=== PATIENT | female | born 1950 | race Caucasian/White ===

== ENCOUNTER 2016-07-11 07:35 | Outpatient (CLI) | payer MEDICARE, MEDICAID ==
[~2016-07-11 07:35] MED LIST: DIPHENHYDRAMINE HCL 50 MG/ML VIAL IV PRN; MAGNESIUM SULFATE 4 GM/D5W 100 ML IV PRN; ONDANSETRON HCL INJ/PF 4 MG/2 ML SDV IV PRN
[2016-07-11 08:21] LABS: ALANINE AMINOTRANSFERASE 24 U/L (9-52); ALBUMIN 3.2 g/dL (3.5-5.0); ALKALINE PHOSPHATASE 86 U/L (38-126); ANION GAP 8 (5-19); ASPARTATE AMINO TRANSFERASE 19 U/L (14-36); BILIRUBIN,DIRECT 0.1 mg/dL (0.0-0.4); BILIRUBIN,TOTAL 0.3 mg/dL (0.2-1.3); BLOOD UREA NITROGEN 22 mg/dL (7-20); CARBON DIOXIDE 19 mmol/L (22-30); CHLORIDE 114 mmol/L (98-107); CREATININE RESULT 1.77 mg/dL (0.52-1.25); GLUCOSE 79 mg/dL (75-110); POTASSIUM 5.1 mmol/L (3.6-5.0); SODIUM 141.4 mmol/L (137-145); TOTAL PROTEIN 5.4 g/dL (6.3-8.2)
[2016-07-11 08:32] VITALS: BP 115/54
[2016-07-11 08:34] LABS: MAGNESIUM 0.7 mg/dL (1.6-2.3)
== END 2016-07-11 13:48 | disposition home or self-care (01) ==
LOC: II 07:35 → 5TH 07:48 → II 13:48
PROVIDERS: ATTEND Family Medicine
PROC: 3E043GC Introduction of Other Therapeutic Substance into Central Vein, Percutaneous Approach (ICD-10-PCS; principal; 2016-07-11)
PROC: 3E043GC Introduction of Other Therapeutic Substance into Central Vein, Percutaneous Approach (ICD-10-PCS; 2016-07-11)
PROC: 3E043GC Introduction of Other Therapeutic Substance into Central Vein, Percutaneous Approach (ICD-10-PCS; 2016-07-11)
PROC: 3E043GC Introduction of Other Therapeutic Substance into Central Vein, Percutaneous Approach (ICD-10-PCS; 2016-07-11)
DX: K50.90 Crohn's disease, unspecified, without complications (principal); K90.9 Intestinal malabsorption, unspecified
CPT/HCPCS: 96365; 96366; 96375; 36415; 83735; 80053; J3475; J1200; J2405; 96374

== ENCOUNTER 2016-07-14 08:17 | Outpatient (CLI) | payer MEDICARE, MEDICAID ==
[2016-07-14] MEDS ORDERED: ONDANSETRON HCL INJ/PF 4 MG/2 ML SDV IV PRN (09:50)
[2016-07-14] MEDS ORDERED: DIPHENHYDRAMINE HCL 50 MG/ML VIAL IV PRN (09:51)
[2016-07-14] MEDS ORDERED: ACETAMINOPHEN 325 MG TABLET PO PRN (09:57)
[2016-07-14] MEDS ORDERED: MAGNESIUM SULFATE 4 GM/D5W 100 ML IV ONE (10:30)
[2016-07-14 11:04] LABS: ALANINE AMINOTRANSFERASE 23 U/L (9-52); ALBUMIN 2.5 g/dL (3.5-5.0); ALKALINE PHOSPHATASE 77 U/L (38-126); ANION GAP 6 (5-19); ASPARTATE AMINO TRANSFERASE 14 U/L (14-36); BILIRUBIN,DIRECT 0.1 mg/dL (0.0-0.4); BILIRUBIN,TOTAL 0.1 mg/dL (0.2-1.3); BLOOD UREA NITROGEN 20 mg/dL (7-20); CALCIUM 7.7 mg/dL (8.4-10.2); CARBON DIOXIDE 18 mmol/L (22-30); CHLORIDE 115 mmol/L (98-107); GLUCOSE 93 mg/dL (75-110); POTASSIUM 4.9 mmol/L (3.6-5.0); SODIUM 139.4 mmol/L (137-145); TOTAL PROTEIN 4.5 g/dL (6.3-8.2)
[2016-07-14 11:15] LABS: MAGNESIUM 0.8 mg/dL (1.6-2.3)
[2016-07-14 12:28] VITALS: BP 97/48
== END 2016-07-14 16:35 | disposition home or self-care (01) ==
LOC: II 08:17 → 4N 08:17 → II 16:35
PROVIDERS: ATTEND Family Medicine
PROC: 3E043GC Introduction of Other Therapeutic Substance into Central Vein, Percutaneous Approach (ICD-10-PCS; principal; 2016-07-14)
DX: K50.90 Crohn's disease, unspecified, without complications (principal); K90.9 Intestinal malabsorption, unspecified; Z79.899 Other long term (current) drug therapy; Z98.890 Other specified postprocedural states
CPT/HCPCS: 96365; 96366; 96375; 36415; 83735; 80053; J3475; J2405; J1642

== ENCOUNTER 2016-07-18 07:18 | Outpatient (CLI) | payer MEDICARE, MEDICAID ==
[2016-07-18] MEDS ORDERED: MAGNESIUM SULFATE 4 GM/D5W 100 ML IV PRN (07:26)
[2016-07-18] MEDS ORDERED: DIPHENHYDRAMINE HCL 50 MG/ML VIAL IV PRN (07:31)
[2016-07-18] MEDS ORDERED: ONDANSETRON HCL INJ/PF 4 MG/2 ML SDV IV PRN (07:31)
[2016-07-18 08:28] VITALS: BP 111/55
== END 2016-07-18 09:10 | disposition home or self-care (01) ==
LOC: II 07:18 → 5TH 07:47 → II 09:10
PROVIDERS: ATTEND Family Medicine
PROC: 3E043GC Introduction of Other Therapeutic Substance into Central Vein, Percutaneous Approach (ICD-10-PCS; principal; 2016-07-18)
DX: E83.42 Hypomagnesemia (principal); G40.909 Epilepsy, unspecified, not intractable, without status epilepticus
CPT/HCPCS: 96367; 96375; J3475; 96365; 96366

== ENCOUNTER 2016-07-18 08:54 | Emergency (ER) | payer MEDICARE, MEDICAID ==
--- NOTE | 2016-07-18 09:07 | ER Document Report ---
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 Patient only has these seizures when her magnesium levels low, patient receives magnesium transfusions 3 times a week. Receiving her transfusion when she seized TRAVEL OUTSIDE OF THE [place] IN LAST 30 DAYS: No - HPI Onset: Just prior to arrival Onset/Duration: Sudden Quality of pain: No pain Severity: Mild Pain Level: Denies Associated symptoms: Weakness, Other Exacerbated by: Denies Relieved by: Denies Similar symptoms previously: Yes Recently seen / treated by doctor: Yes - Related Data Allergies/Adverse Reactions: acetaminophen [From Percocet] Allergy (Verified 07/18/16 09:25) butorphanol [From Stadol] Allergy (Verified 07/18/16 09:25) cephalexin [From Keflex] Allergy (Verified 07/18/16 09:25) codeine Allergy (Verified 07/18/16 09:25) Difficulty breathing cyclobenzaprine [From Flexeril] Allergy (Verified 07/18/16 09:25) ketoprofen Allergy (Verified 07/18/16 09:25) ketorolac [From Toradol] Allergy (Verified 07/18/16 09:25) meloxicam [From Mobic] Allergy (Verified 07/18/16 09:25) oxycodone [From Percocet] Allergy (Verified 07/18/16 09:25) pentazocine [From Talwin] Allergy (Verified 07/18/16 09:25) promethazine [From Phenergan] Allergy (Verified 07/18/16 09:25) sulfasalazine [From Azulfidine] Allergy (Verified 07/18/16 09:25) adhesive Adverse Reaction (Verified 07/18/16 09:25) Past Medical History - Social History Smoking Status: Never Smoker Cigarette use (# per day): No Chew tobacco use (# tins/day): No Smoking Education Provided: No Family History: Reviewed & Not Pertinent Review of Systems - Review of Systems Notes: REVIEW OF SYSTEMS: CONSTITUTIONAL : Denies fever, chills, or sweats. Denies recent illness. EENT: Denies eye, ear, throat, or mouth pain or symptoms. Denies nasal or sinus congestion or discharge. Denies throat, tongue, or mouth swelling or difficulty swallowing. CARDIOVASCULAR: Denies chest pain. Denies palpitations or racing or irregular heart beat. Denies ankle edema. RESPIRATORY: Denies cough, cold, or chest congestion. Denies shortness of breath, difficulty breathing, or wheezing. GASTROINTESTINAL: Denies abdominal pain or distention. Denies nausea, vomiting , or diarrhea. Denies blood in vomitus, stools, or per rectum. Denies black, tarry stools. Denies constipation. GENITOURINARY: Denies difficulty urinating, painful urination, burning, frequency, blood in urine, or discharge. FEMALE GENITOURINARY: Denies vaginal bleeding, heavy or abnormal periods, irregular periods. Denies vaginal discharge or odor. MUSCULOSKELETAL: Denies back or neck pain or stiffness. Denies joint pain or swelling. SKIN: Denies rash, lesions or sores. HEMATOLOGIC : Denies easy bruising or bleeding. LYMPHATIC: Denies swollen, enlarged glands. NEUROLOGICAL: Admits to seizure PSYCHIATRIC: Denies anxiety or stress. Denies depression, suicidal ideation, or homicidal ideation. ALL OTHER SYSTEMS REVIEWED AND NEGATIVE. Dictation was performed using [employer] voice recognition software PHYSICAL EXAMINATION: GENERAL: Well-appearing, well-nourished and in no acute distress. HEAD: Atraumatic, normocephalic. EYES: Pupils equal round and reactive to light, extraocular movements intact, conjunctiva are normal. ENT: Nares patent, oropharynx clear without exudates. Moist mucous membranes. NECK: Normal range of motion, supple without lymphadenopathy LUNGS: Breath sounds clear to auscultation bilaterally and equal. No wheezes rales or rhonchi. HEART: Regular rate and rhythm without murmurs ABDOMEN: Soft, nontender, nondistended abdomen. No guarding, no rebound. No masses appreciated. Female : deferred Musculoskeletal: Normal range of motion, no pitting or edema. No cyanosis. NEUROLOGICAL: Cranial nerves grossly intact. Normal speech, normal gait. Normal sensory, motor exams PSYCH: Normal mood, normal affect. SKIN: Warm, Dry, normal turgor, no rashes or lesions noted. Physical Exam - Vital signs Vitals: Resp 16 07/18/16 08:55 Course - Re-evaluation Re-evalutation: 07/18/16 09:07 Patient is currently being infused magnesium, given that this is the cause of her previous seizures and I expect any life-threatening issues 07/18/16 11:31 Magnesium level is noted to be significantly low, she is still being transfused with no difficulty, mild hypotension is no secondary to the infusion, fluid bolus given otherwise patient stable well-appearing 07/18/16 14:10 dilantin level is very low, will give a large dose here and have patient follow up with neuroogy for further care After performing a Medical Screening Examination, I estimate there is LOW risk for INTRACRANIAL HEMORRHAGE, ISCHEMIC CVA, MALIGNANT DYSRHYTHMIA, ACUTE CORONARY SYNDROME, MENINGITIS, PULMONARY EMBOLISM, or SEPSIS thus I consider the discharge disposition reasonable. I have reevaluated this patient multiple times and no significant life threatening changes are noted. The patient and I have discussed the diagnosis and risks, and we agree with discharging home with close follow-up with the understanding that symptoms and presentations can change. We also discussed returning to the Emergency Department immediately if new or worsening symptoms occur. We have discussed the symptoms which are most concerning (e.g., changing or worsening pain, weakness, vomiting, fever) that necessitate immediate return. - Vital Signs Vital signs: Temp Pulse Resp BP Pulse Ox 98.1 F 11 L 110/64 96 07/18/16 13:01 07/18/16 13:01 07/18/16 13:01 07/18/16 13:01 - Laboratory Result Diagrams: 07/18/16 09:17 07/18/16 09:17 Laboratory results interpreted by me: 07/18/16 07/18/16 07/18/16 09:17 09:17 11:34 RBC 3.17 L Hgb 9.5 L Hct 28.7 L RDW 14.9 H Chloride 113 H Carbon Dioxide 18 L BUN 21 H Creatinine 1.78 H Est GFR ( Amer) 35 L Est GFR (Non-Af Amer) 29 L Calcium 8.0 L Magnesium 0.9 L* Total Protein 5.2 L Albumin 3.0 L Phenytoin < 3.0 L Critical Care Note - Critical Care Note Total time excluding time spent on procedures (mins): 34 Comments: 34 minutes of critical care time spent in direct contact evaluating and reevaluating the patient, treating symptoms, reviewing labs and studies and speaking with family and consultants excluding any procedures Discharge - Discharge Clinical Impression: Seizure disorder, Hypomagnesemia syndrome Condition: Stable Disposition: HOME, SELF-CARE Additional Instructions: Seizure, Known Epileptic You have had a seizure. Seizures may "break through" in an epileptic due to stress of infection or injury, a change in blood chemistry, or drug and alcohol use. Another common cause is failure to take medication as prescribed. Your doctor has evaluated your situation for the likely cause of this seizure. It is important that you follow his advice concerning any medication changes and follow-up care. Further testing of anti-seizure medication levels in your blood may be necessary. If you have a personal driver's license, it's important that you DO NOT DRIVE until given permission by your physician. This seizure must be reported to the personal driver 's license bureau. Call the doctor or return if seizures recur, or if new or unusual symptoms arise -- such as severe headache, confusion, excessive sleepiness, local weakness or numbness, neck stiffness, or fever. Referrals: LINH LANDRUM MD [ACTIVE STAFF] - Follow up tomorrow
[2016-07-18 09:32] LABS: ABSOLUTE EOSINOPHILS # (AUTO) 0.2 10^3/uL (0.0-0.6); ABSOLUTE LYMPHOCYTES (AUTO) 2.3 10^3/uL (0.5-4.7); ABSOLUTE MONOCYTES (AUTO) 0.8 10^3/uL (0.1-1.4); ABSOLUTE NEUT (AUTO) 5.1 10^3/uL (1.7-8.2); BASOPHILS % (AUTO) 0.5 % (0-2); EOSINOPHILS % (AUTO) 2.5 % (0-6); HEMATOCRIT 28.7 % (36.0-47.0); HEMOGLOBIN 9.5 g/dL (12.0-15.5); HGB HCT DIFFERENCE -0.2; LYMPHOCYTES % (AUTO) 26.9 % (13-45); MEAN CORPUSCULAR VOLUME 91 fl (80-97); MONOCYTES % (AUTO) 9.6 % (3-13); RED BLOOD COUNT 3.17 10^6/uL (3.72-5.28); RED CELL DISTRIBUTION WIDTH 14.9 % (11.5-14.0); SEGMENTED NEUTROPHILS % (AUTO) 60.5 % (42-78); WHITE BLOOD COUNT 8.5 10^3/uL (4.0-10.5)
[2016-07-18 09:44] LABS: ALANINE AMINOTRANSFERASE 28 U/L (9-52); ALKALINE PHOSPHATASE 96 U/L (38-126); ANION GAP 10 (5-19); ASPARTATE AMINO TRANSFERASE 20 U/L (14-36); BILIRUBIN,DIRECT 0.1 mg/dL (0.0-0.4); BILIRUBIN,TOTAL 0.3 mg/dL (0.2-1.3); BLOOD UREA NITROGEN 21 mg/dL (7-20); CARBON DIOXIDE 18 mmol/L (22-30); CHLORIDE 113 mmol/L (98-107); CREATININE RESULT 1.78 mg/dL (0.52-1.25); GLUCOSE 81 mg/dL (75-110); POTASSIUM 4.8 mmol/L (3.6-5.0); SODIUM 141.2 mmol/L (137-145); TOTAL PROTEIN 5.2 g/dL (6.3-8.2)
[2016-07-18 09:54] LABS: MAGNESIUM 0.9 mg/dL (1.6-2.3)
[2016-07-18] MEDS ORDERED: NORMAL SALINE 500 ML IV ONE ×2 (09:56→11:30)
[2016-07-18] MEDS ORDERED: PHENYTOIN SODIUM EXTENDED 100 MG CAPSULE PO ONE (14:08)
[2016-07-18 14:13] VITALS: BP 140/78
== END 2016-07-18 14:30 | disposition home or self-care (01) ==
LOC: ER 08:54
DX: G40.909 Epilepsy, unspecified, not intractable, without status epilepticus (principal); E83.42 Hypomagnesemia
CPT/HCPCS: 99285; 96360; 96365; 96366; 96367; 36415; 83735; 80185; 85025; 80053; J3475; A9270; J7040; 96375

== ENCOUNTER 2016-07-20 08:19 | Outpatient (CLI) | payer MEDICARE, MEDICAID ==
[~2016-07-20 08:19] MED LIST changes: -DIPHENHYDRAMINE HCL 50 MG/ML VIAL IV PRN; -ONDANSETRON HCL INJ/PF 4 MG/2 ML SDV IV PRN
[2016-07-20] MEDS ORDERED: DIPHENHYDRAMINE HCL 50 MG/ML VIAL IV PRN (12:37)
[2016-07-20] MEDS ORDERED: ONDANSETRON HCL INJ/PF 4 MG/2 ML SDV IV PRN (12:37)
[2016-07-20 18:08] VITALS: BP 108/46
== END 2016-07-20 17:30 | disposition home or self-care (01) ==
LOC: II 08:19 → 3S 10:25 → II 17:30
PROVIDERS: ATTEND Family Medicine
PROC: 3E043GC Introduction of Other Therapeutic Substance into Central Vein, Percutaneous Approach (ICD-10-PCS; principal; 2016-07-20)
DX: E83.42 Hypomagnesemia (principal); K50.90 Crohn's disease, unspecified, without complications; K90.9 Intestinal malabsorption, unspecified; Z98.890 Other specified postprocedural states
CPT/HCPCS: 96365; 96366; 96375; J3475; J2405

== ENCOUNTER 2016-07-23 11:36 | Outpatient (CLI) | payer MEDICARE, MEDICAID ==
[2016-07-23] MEDS ORDERED: ONDANSETRON HCL INJ/PF 4 MG/2 ML SDV IV PRN (13:37)
[2016-07-23] MEDS ORDERED: DIPHENHYDRAMINE HCL 50 MG/ML VIAL IV PRN (13:37)
[2016-07-23] MEDS ORDERED: MAGNESIUM SULFATE 4 GM/D5W 100 ML IV ONE (14:30)
[2016-07-23 15:02] LABS: ALANINE AMINOTRANSFERASE 24 U/L (9-52); ALBUMIN 2.8 g/dL (3.5-5.0); ALKALINE PHOSPHATASE 106 U/L (38-126); ANION GAP 7 (5-19); ASPARTATE AMINO TRANSFERASE 19 U/L (14-36); BILIRUBIN,DIRECT 0.2 mg/dL (0.0-0.4); BILIRUBIN,TOTAL 0.3 mg/dL (0.2-1.3); BLOOD UREA NITROGEN 20 mg/dL (7-20); CALCIUM 7.7 mg/dL (8.4-10.2); CARBON DIOXIDE 19 mmol/L (22-30); CHLORIDE 114 mmol/L (98-107); CREATININE RESULT 1.67 mg/dL (0.52-1.25); GLUCOSE 92 mg/dL (75-110); POTASSIUM 4.9 mmol/L (3.6-5.0); SODIUM 140.4 mmol/L (137-145)
[2016-07-23 17:01] VITALS: BP 129/54
[2016-07-25] MEDS ORDERED: ONDANSETRON HCL INJ/PF 4 MG/2 ML SDV IV PRN (10:51)
[2016-07-25] MEDS ORDERED: DIPHENHYDRAMINE HCL 50 MG/ML VIAL IV PRN (10:52)
[2016-07-25] MEDS ORDERED: MAGNESIUM SULFATE 4 GM/D5W 100 ML IV ONE (11:00)
== END 2016-07-23 19:15 | disposition home or self-care (01) ==
LOC: 4S 11:36 → II 11:36
PROVIDERS: ATTEND Internal Medicine
PROC: 3E033GC Introduction of Other Therapeutic Substance into Peripheral Vein, Percutaneous Approach (ICD-10-PCS; principal; 2016-07-23)
DX: E83.42 Hypomagnesemia (principal); K50.119 Crohn's disease of large intestine with unspecified complications
CPT/HCPCS: 36415; 83735; 80053; J3475; J2405; 96365; 96366; 96375

== ENCOUNTER 2016-07-25 10:34 | Outpatient (CLI) | payer MEDICARE, MEDICAID ==
[2016-07-25] MEDS ORDERED: MAGNESIUM SULFATE 4 GM/D5W 100 ML IV ONE (15:00)
[2016-07-25] MEDS ORDERED: ONDANSETRON HCL INJ/PF 4 MG/2 ML SDV IV PRN (18:27)
[2016-07-25 21:46] VITALS: BP 130/68
== END 2016-07-25 21:52 | disposition home or self-care (01) ==
LOC: II 10:34 → 4S 15:47 → II 21:52
PROVIDERS: ATTEND Internal Medicine
PROC: 3E043GC Introduction of Other Therapeutic Substance into Central Vein, Percutaneous Approach (ICD-10-PCS; principal; 2016-07-25)
DX: E83.42 Hypomagnesemia (principal); K50.119 Crohn's disease of large intestine with unspecified complications
CPT/HCPCS: 96365; 96366; 96375; J3475; J2405

== ENCOUNTER 2016-07-27 09:13 | Outpatient (CLI) | payer MEDICARE, MEDICAID ==
[2016-07-27] MEDS ORDERED: ONDANSETRON HCL INJ/PF 4 MG/2 ML SDV IV PRN (10:22)
[2016-07-27] MEDS ORDERED: DIPHENHYDRAMINE HCL 50 MG/ML VIAL IV PRN (10:23)
[2016-07-27] MEDS ORDERED: MAGNESIUM SULFATE 4 GM/D5W 100 ML IV ONE (12:00)
[2016-07-27 12:06] VITALS: BP 101/54
[2016-07-27 12:17] LABS: ALANINE AMINOTRANSFERASE 19 U/L (9-52); ALBUMIN 2.9 g/dL (3.5-5.0); ALKALINE PHOSPHATASE 123 U/L (38-126); ANION GAP 9 (5-19); ASPARTATE AMINO TRANSFERASE 15 U/L (14-36); BILIRUBIN,DIRECT 0.2 mg/dL (0.0-0.4); BILIRUBIN,TOTAL 0.3 mg/dL (0.2-1.3); BLOOD UREA NITROGEN 22 mg/dL (7-20); CALCIUM 8.5 mg/dL (8.4-10.2); CARBON DIOXIDE 20 mmol/L (22-30); CHLORIDE 112 mmol/L (98-107); CREATININE RESULT 1.88 mg/dL (0.52-1.25); GLUCOSE 102 mg/dL (75-110); MAGNESIUM 1.5 mg/dL (1.6-2.3); POTASSIUM 5.2 mmol/L (3.6-5.0); TOTAL PROTEIN 5.3 g/dL (6.3-8.2)
== END 2016-07-27 18:01 | disposition home or self-care (01) ==
LOC: 4N 09:13 → II 09:13
PROVIDERS: ATTEND Internal Medicine
PROC: 3E043GC Introduction of Other Therapeutic Substance into Central Vein, Percutaneous Approach (ICD-10-PCS; principal; 2016-07-27)
DX: E83.42 Hypomagnesemia (principal); K50.119 Crohn's disease of large intestine with unspecified complications
CPT/HCPCS: 96365; 96366; 96375; 36415; 83735; 80053; J3475; J2405

== ENCOUNTER 2016-07-30 08:42 | Outpatient (CLI) | payer MEDICARE, MEDICAID ==
[2016-07-30] MEDS ORDERED: ONDANSETRON HCL INJ/PF 4 MG/2 ML SDV IV PRN (09:52)
[2016-07-30] MEDS ORDERED: DIPHENHYDRAMINE HCL 50 MG/ML VIAL IV PRN (09:53)
[2016-07-30] MEDS ORDERED: MAGNESIUM SULFATE 4 GM/D5W 100 ML IV PRN (09:55)
[2016-07-30 11:04] LABS: ANION GAP 10 (5-19); BLOOD UREA NITROGEN 23 mg/dL (7-20); CALCIUM 8.5 mg/dL (8.4-10.2); CARBON DIOXIDE 19 mmol/L (22-30); CHLORIDE 110 mmol/L (98-107); CREATININE RESULT 1.92 mg/dL (0.52-1.25); GLUCOSE 90 mg/dL (75-110); MAGNESIUM 1.3 mg/dL (1.6-2.3); POTASSIUM 5.2 mmol/L (3.6-5.0); SODIUM 138.7 mmol/L (137-145)
[2016-07-30 12:47] VITALS: BP 105/49
== END 2016-07-30 18:28 | disposition home or self-care (01) ==
LOC: II 08:42 → 4N 08:45 → II 18:28
PROVIDERS: ATTEND Internal Medicine
PROC: 3E033GC Introduction of Other Therapeutic Substance into Peripheral Vein, Percutaneous Approach (ICD-10-PCS; principal; 2016-07-30)
DX: Z76.89 Persons encountering health services in other specified circumstances (principal)
CPT/HCPCS: 96365; 96366; 96375; 36415; 83735; 80048; J3475; J2405

== ENCOUNTER 2016-08-01 12:31 | Outpatient (CLI) | payer MEDICARE, MEDICAID ==
[2016-08-01] MEDS ORDERED: ONDANSETRON HCL INJ/PF 4 MG/2 ML SDV IV PRN (13:21)
[2016-08-01] MEDS ORDERED: DIPHENHYDRAMINE HCL 50 MG/ML VIAL IV PRN (13:22)
[2016-08-01] MEDS ORDERED: MAGNESIUM SULFATE 4 GM/D5W 100 ML IV ONE (14:00)
[2016-08-01 15:07] LABS: ALANINE AMINOTRANSFERASE 28 U/L (9-52); ALKALINE PHOSPHATASE 137 U/L (38-126); ANION GAP 11 (5-19); ASPARTATE AMINO TRANSFERASE 17 U/L (14-36); BILIRUBIN,DIRECT 0.3 mg/dL (0.0-0.4); BILIRUBIN,TOTAL 0.4 mg/dL (0.2-1.3); BLOOD UREA NITROGEN 26 mg/dL (7-20); CALCIUM 8.5 mg/dL (8.4-10.2); CARBON DIOXIDE 19 mmol/L (22-30); CHLORIDE 110 mmol/L (98-107); CREATININE RESULT 2.12 mg/dL (0.52-1.25); GLUCOSE 95 mg/dL (75-110); MAGNESIUM 1.7 mg/dL (1.6-2.3); POTASSIUM 4.1 mmol/L (3.6-5.0); SODIUM 140.3 mmol/L (137-145); TOTAL PROTEIN 5.4 g/dL (6.3-8.2)
[2016-08-01 20:38] VITALS: BP 122/68
== END 2016-08-01 21:00 | disposition home or self-care (01) ==
LOC: II 12:31 → 5 12:50 → II 21:00
PROVIDERS: ATTEND Internal Medicine
PROC: 3E043GC Introduction of Other Therapeutic Substance into Central Vein, Percutaneous Approach (ICD-10-PCS; principal; 2016-08-01)
DX: K50.90 Crohn's disease, unspecified, without complications (principal); K90.9 Intestinal malabsorption, unspecified
CPT/HCPCS: 96365; 96366; 96375; 36415; 83735; 80053; J3475; J2405

== ENCOUNTER 2016-08-03 09:48 | Outpatient (CLI) | payer MEDICARE, MEDICAID ==
[2016-08-03] MEDS ORDERED: ONDANSETRON HCL INJ/PF 4 MG/2 ML SDV IV PRN (10:38)
[2016-08-03] MEDS ORDERED: DIPHENHYDRAMINE HCL 50 MG/ML VIAL IV PRN (10:39)
[2016-08-03] MEDS ORDERED: MAGNESIUM SULFATE 4 GM/D5W 100 ML IV PRN (12:00)
[2016-08-03 15:38] LABS: ALANINE AMINOTRANSFERASE 27 U/L (9-52); ALBUMIN 2.5 g/dL (3.5-5.0); ALKALINE PHOSPHATASE 119 U/L (38-126); ANION GAP 9 (5-19); ASPARTATE AMINO TRANSFERASE 16 U/L (14-36); BILIRUBIN,DIRECT 0.1 mg/dL (0.0-0.4); BILIRUBIN,TOTAL 0.1 mg/dL (0.2-1.3); BLOOD UREA NITROGEN 24 mg/dL (7-20); CALCIUM 8.1 mg/dL (8.4-10.2); CARBON DIOXIDE 20 mmol/L (22-30); CHLORIDE 109 mmol/L (98-107); CREATININE RESULT 1.98 mg/dL (0.52-1.25); GLUCOSE 107 mg/dL (75-110); MAGNESIUM 2.7 mg/dL (1.6-2.3); POTASSIUM 4.1 mmol/L (3.6-5.0); TOTAL PROTEIN 4.5 g/dL (6.3-8.2)
[2016-08-03 17:06] VITALS: BP 107/56
== END 2016-08-03 19:36 | disposition home or self-care (01) ==
LOC: II 09:48 → 4S 09:51 → II 19:36
PROVIDERS: ATTEND Internal Medicine
PROC: 3E033GC Introduction of Other Therapeutic Substance into Peripheral Vein, Percutaneous Approach (ICD-10-PCS; principal; 2016-08-03)
DX: K50.90 Crohn's disease, unspecified, without complications (principal); K90.9 Intestinal malabsorption, unspecified
CPT/HCPCS: 96365; 96366; 96375; 36415; 83735; 80053; J3475; J2405

== ENCOUNTER 2016-08-06 10:18 | Outpatient (CLI) | payer MEDICARE, MEDICAID ==
[2016-08-06] MEDS ORDERED: MAGNESIUM SULFATE 4 GM/D5W 100 ML IV ONE (12:00)
[2016-08-06] MEDS ORDERED: ONDANSETRON HCL INJ/PF 4 MG/2 ML SDV IV PRN (12:00)
[2016-08-06] MEDS ORDERED: DIPHENHYDRAMINE HCL 50 MG/ML VIAL IV PRN (12:00)
[2016-08-06 12:20] LABS: ALANINE AMINOTRANSFERASE 31 U/L (9-52); ALBUMIN 2.3 g/dL (3.5-5.0); ALKALINE PHOSPHATASE 135 U/L (38-126); ANION GAP 5 (5-19); ASPARTATE AMINO TRANSFERASE 15 U/L (14-36); BILIRUBIN,DIRECT 0.1 mg/dL (0.0-0.4); BILIRUBIN,TOTAL 0.1 mg/dL (0.2-1.3); BLOOD UREA NITROGEN 23 mg/dL (7-20); CALCIUM 7.9 mg/dL (8.4-10.2); CARBON DIOXIDE 23 mmol/L (22-30); CHLORIDE 110 mmol/L (98-107); CREATININE RESULT 2.03 mg/dL (0.52-1.25); GLUCOSE 115 mg/dL (75-110); MAGNESIUM 1.5 mg/dL (1.6-2.3); POTASSIUM 3.8 mmol/L (3.6-5.0); SODIUM 138.2 mmol/L (137-145); TOTAL PROTEIN 4.3 g/dL (6.3-8.2)
[2016-08-06 17:24] VITALS: BP 106/63
== END 2016-08-06 17:30 | disposition home or self-care (01) ==
LOC: II 10:18 → 3W 10:21 → II 17:30
PROVIDERS: ATTEND Internal Medicine
PROC: 3E043GC Introduction of Other Therapeutic Substance into Central Vein, Percutaneous Approach (ICD-10-PCS; principal; 2016-08-06)
DX: K50.90 Crohn's disease, unspecified, without complications (principal); K90.9 Intestinal malabsorption, unspecified
CPT/HCPCS: 36415; 83735; 80053; J3475; J2405; 96365; 96366; 96375

== ENCOUNTER 2016-08-08 10:39 | Outpatient (CLI) | payer MEDICARE, MEDICAID ==
[2016-08-08 11:51] VITALS: BP 114/63
[2016-08-08] MEDS ORDERED: ONDANSETRON HCL INJ/PF 4 MG/2 ML SDV IV ONE (12:30)
[2016-08-08] MEDS ORDERED: DIPHENHYDRAMINE HCL 50 MG/ML VIAL IV ONE (12:30)
[2016-08-08] MEDS ORDERED: MAGNESIUM SULFATE 4 GM/D5W 100 ML IV ONE (12:30)
== END 2016-08-08 18:10 | disposition home or self-care (01) ==
LOC: II 10:39 → 3S 10:45 → II 18:10
PROVIDERS: ATTEND Internal Medicine
PROC: 3E043GC Introduction of Other Therapeutic Substance into Central Vein, Percutaneous Approach (ICD-10-PCS; principal; 2016-08-08)
DX: K50.90 Crohn's disease, unspecified, without complications (principal); K90.9 Intestinal malabsorption, unspecified
CPT/HCPCS: 96365; 96366; 96375; J3475; J2405

== ENCOUNTER 2016-08-12 16:54 | Emergency (ER) | payer MEDICARE, MEDICAID ==
--- NOTE | 2016-08-12 17:13 | ER Document Report ---
ED Medical Screen (RME) - General Chief Complaint: Blurred Vision Stated Complaint: NECK PAIN/SLURRED SPEECH TRAVEL OUTSIDE OF THE [place] IN LAST 30 DAYS: No - HPI Notes: 08/12/16 17:11 Patient coming in for evaluation of slurred speech blurry vision neck pain ongoing for the last 2 days - Related Data Allergies/Adverse Reactions: butorphanol [From Stadol] Allergy (Verified 08/12/16 17:06) cephalexin [From Keflex] Allergy (Verified 08/12/16 17:06) codeine Allergy (Verified 08/12/16 17:06) Difficulty breathing cyclobenzaprine [From Flexeril] Allergy (Verified 08/12/16 17:06) ketoprofen Allergy (Verified 08/12/16 17:06) ketorolac [From Toradol] Allergy (Verified 08/12/16 17:06) meloxicam [From Mobic] Allergy (Verified 08/12/16 17:06) oxycodone [From Percocet] Allergy (Verified 08/12/16 17:06) pentazocine [From Talwin] Allergy (Verified 08/12/16 17:06) promethazine [From Phenergan] Allergy (Verified 08/12/16 17:06) sulfasalazine [From Azulfidine] Allergy (Verified 08/12/16 17:06) adhesive Adverse Reaction (Verified 08/12/16 17:06) Past Medical History Neurological Medical History: Reports: Hx Seizures Renal/ Medical History: Reports: Hx Kidney Stones. 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 Pupils PERRLA Course - Re-evaluation Re-evalutation: 08/12/16 17:13 I have greeted and performed a rapid initial assessment of this patient. A comprehensive ED assessment and evaluation of the patient, analysis of test results and completion of the medical decision making process will be conducted by additional ED providers. - Vital Signs Vital signs: Temp Pulse Resp BP Pulse Ox 97.5 F 88 16 107/57 L 97 08/12/16 17:02 08/12/16 17:02 08/12/16 17:02 08/12/16 17:02 08/12/16 17:02
[2016-08-12 17:48] LABS: APPEARANCE,URINE CLEAR; BILIRUBIN,URINE NEGATIVE (NEGATIVE); GLUCOSE, URINE NEGATIVE (NEGATIVE); KETONES,URINE NEGATIVE (NEGATIVE); LEUKOCYTE ESTERASE,URINE NEGATIVE (NEGATIVE); NITRITE,URINE NEGATIVE (NEGATIVE); PROTEIN,URINE NEGATIVE (NEGATIVE); URINE SPECIFIC GRAVITY 1.023; UROBILINOGEN,URINE NEGATIVE mg/dL (<2.0)
[2016-08-12 18:02] LABS: URINE BARBITURATES SCREEN NEGATIVE; URINE METHADONE SCREEN NEGATIVE; URINE OPIATES LOW UNCONFIRMED POSITIVE; URINE PHENCYCLIDINE SCREEN NEGATIVE
--- NOTE | 2016-08-12 18:28 | ER Document Report ---
ED General - General Chief Complaint: Blurred Vision Stated Complaint: NECK PAIN/SLURRED SPEECH Time Seen by Provider: 08/12/16 17:13 Notes: Patient is a 65-year-old female with a past medical history of seizures secondary to hypomagnesemia, hypertension, hyperlipidemia who presents with intermittent double vision, left-sided neck pain, and generalized fatigue. States the symptoms have been intermittent over the last 2 days and unchanged in frequency since onset. Nothing improves or worsens her symptoms. She is uncertain if she's had similar symptoms in the past. Admits to poor by mouth intake over the last several days. She has not seen her primary care doctor regarding today's concerns. She denies any focal weakness, numbness, altered mental status, nausea, vomiting, diarrhea, chest pain. Patient's daughter is also concerned about slurred speech but the patient states clearly "it's because I'm not wearing dentures silly". TRAVEL OUTSIDE OF THE [place] IN LAST 30 DAYS: No - Related Data Allergies/Adverse Reactions: butorphanol [From Stadol] Allergy (Verified 08/12/16 17:06) cephalexin [From Keflex] Allergy (Verified 08/12/16 17:06) codeine Allergy (Verified 08/12/16 17:06) Difficulty breathing cyclobenzaprine [From Flexeril] Allergy (Verified 08/12/16 17:06) ketoprofen Allergy (Verified 08/12/16 17:06) ketorolac [From Toradol] Allergy (Verified 08/12/16 17:06) meloxicam [From Mobic] Allergy (Verified 08/12/16 17:06) oxycodone [From Percocet] Allergy (Verified 08/12/16 17:06) pentazocine [From Talwin] Allergy (Verified 08/12/16 17:06) promethazine [From Phenergan] Allergy (Verified 08/12/16 17:06) sulfasalazine [From Azulfidine] Allergy (Verified 08/12/16 17:06) adhesive Adverse Reaction (Verified 08/12/16 17:06) Past Medical History - General Information source: Patient, Relative - Social History Smoking Status: Never Smoker Frequency of alcohol use: None Drug Abuse: None Lives with: Family Family History: Reviewed & Not Pertinent Neurological Medical History: Reports: Hx Seizures Renal/ Medical History: Reports: Hx Kidney Stones. Denies: Hx Peritoneal Dialysis Musculoskeltal Medical History: Reports Hx Arthritis Psychiatric Medical History: Reports: Hx Depression - Immunizations Hx Diphtheria, Pertussis, Tetanus Vaccination: No Review of Systems - Review of Systems Notes: Constitutional: Negative for fever. HENT: Negative for sore throat. Eyes: Positive for visual changes. Cardiovascular: Negative for chest pain. Respiratory: Negative for shortness of breath. Gastrointestinal: Negative for abdominal pain, vomiting or diarrhea. Genitourinary: Negative for dysuria. Musculoskeletal: Negative for back pain. Skin: Negative for rash. Neurological: Negative for headaches, weakness or numbness. 10 point ROS negative except as marked above and in HPI. Physical Exam - Vital signs Vitals: Temp Pulse Resp BP Pulse Ox 97.5 F 88 16 107/57 L 97 08/12/16 17:02 08/12/16 17:02 08/12/16 17:02 08/12/16 17:02 08/12/16 17:02 Interpretation: Normal Notes: PHYSICAL EXAMINATION: GENERAL: Well-appearing, well-nourished and in no acute distress. HEAD: Atraumatic, normocephalic. EYES: Pupils equal round and reactive to light, extraocular movements intact, sclera anicteric, conjunctiva are normal. ENT: nares patent, oropharynx clear without exudates. Moist mucous membranes. NECK: Normal range of motion, supple without lymphadenopathy LUNGS: Breath sounds clear to auscultation bilaterally and equal. No wheezes rales or rhonchi. HEART: Regular rate and rhythm without murmurs ABDOMEN: Soft, nontender, normoactive bowel sounds. No guarding, no rebound. No masses appreciated. EXTREMITIES: Normal range of motion, no pitting or edema. No cyanosis. NEUROLOGICAL: Face symmetric. Tongue protrudes midline. Extraocular motions intact. Pupils are 2 mm and equally reactive. Normal speech, normal gait. 5 out of 5 strength in both the distal and proximal upper and lower extremities bilaterally. Sensation is grossly intact throughout. Finger to nose testing normal. Pronator drift normal. PSYCH: Normal mood, normal affect. SKIN: Warm, Dry, normal turgor, no rashes or lesions noted. Course - Re-evaluation Re-evalutation: 08/12/16 18:27 Patient presents with multiple vague complaints that did not appear to be concerning for any acute life-threatening pathology. Vitals are within normal limits at triage and at time of discharge. Physical examination is unremarkable. Patient is continuing intermittent "double vision" but has no field cut on exam, full extraocular motions. A complete neuro assessment is unremarkable without any focal neurologic deficit, cerebellar deficits, or difficulty with ambulation. She has negative Romberg and pronator drift. Speech is clear. She also is complaining of pain over the left sternocleidomastoid muscle and there is point tenderness to palpation. In triage, CT the head and a x-ray of the cervical spine were ordered which were noted to be normal. Patient has tolerated oral intake without difficulty. Patient was not noted to be in distress at any point during their ER visit. At this time, based on the reassuring evaluation, I do not suspect an acute [place], pulmonary embolus, stroke, aortic dissection, acute intra-abdominal pathology, stroke, or sepsis.her labs are consistent with dehydration as she has worsening chronic kidney function today relative to her baseline. I have informed patient that she will need to have this rechecked. So informed them that her phenytoin level is undetectable and that she will need to follow closely with her primary doctor regarding this issue. Will discharge with return precautions and follow-up recommendations. Verbal discharge instructions given a the bedside and opportunity for questions given. Medication warnings reviewed. Patient is in agreement with this plan and has verbalized understanding of return precautions and the need for primary care follow-up in the next 24-72 hours. - Vital Signs Vital signs: Temp Pulse Resp BP Pulse Ox 97.5 F 88 16 107/57 L 97 08/12/16 17:02 08/12/16 17:02 08/12/16 17:02 08/12/16 17:02 08/12/16 17:02 - Laboratory Result Diagrams: 08/12/16 19:08 08/12/16 19:08 Laboratory results interpreted by me: 08/12/16 08/12/16 08/12/16 19:08 19:08 19:08 RBC 3.08 L Hgb 9.2 L Hct 27.3 L RDW 14.6 H Sodium 135.4 L Chloride 108 H BUN 30 H Creatinine 2.30 H Est GFR ( Amer) 26 L Est GFR (Non-Af Amer) 21 L Calcium 8.3 L Alkaline Phosphatase 139 H Total Protein 4.8 L Albumin 2.5 L Phenytoin < 3.0 L Discharge - Discharge Clinical Impression: Dehydration, Lightheadedness Condition: Good Disposition: HOME, SELF-CARE Additional Instructions: Please be sure to drink plenty of fluids. Your magnesium level is normal today. The CT scan of her head was also normal. Your kidney function is worse today and he needn't have this rechecked by her primary care doctor in the next 1 week. Please return to the emergency room immediately if you experience any concerning symptoms including high fevers, severe headache, chest pain, difficulty breathing, abdominal pain, slurred speech, numbness or weakness in your arms or legs, or any other symptom that concerns you. Referrals: GT SANCHEZ MD [Primary Care Provider] - Follow up in 3-5 days
[2016-08-12] MEDS ORDERED: NORMAL SALINE 1000 ML 1,000 ML IV ONE (18:30)
[2016-08-12 19:27] LABS: ABSOLUTE BASOPHILS # (AUTO) 0.1 10^3/uL (0.0-0.2); ABSOLUTE EOSINOPHILS # (AUTO) 0.2 10^3/uL (0.0-0.6); ABSOLUTE LYMPHOCYTES (AUTO) 2.1 10^3/uL (0.5-4.7); ABSOLUTE MONOCYTES (AUTO) 0.9 10^3/uL (0.1-1.4); ABSOLUTE NEUT (AUTO) 5.5 10^3/uL (1.7-8.2); BASOPHILS % (AUTO) 0.7 % (0-2); EOSINOPHILS % (AUTO) 1.9 % (0-6); HEMATOCRIT 27.3 % (36.0-47.0); HEMOGLOBIN 9.2 g/dL (12.0-15.5); HGB HCT DIFFERENCE 0.3; LYMPHOCYTES % (AUTO) 24.1 % (13-45); MEAN CORPUSCULAR HEMOGLOBIN 29.8 pg (27.0-33.4); MEAN CORPUSCULAR HGB CONC 33.6 g/dL (32.0-36.0); MEAN CORPUSCULAR VOLUME 89 fl (80-97); MONOCYTES % (AUTO) 10.5 % (3-13); RED BLOOD COUNT 3.08 10^6/uL (3.72-5.28); RED CELL DISTRIBUTION WIDTH 14.6 % (11.5-14.0); SEGMENTED NEUTROPHILS % (AUTO) 62.8 % (42-78); WHITE BLOOD COUNT 8.8 10^3/uL (4.0-10.5)
[2016-08-12 19:43] LABS: ALANINE AMINOTRANSFERASE 32 U/L (9-52); ALBUMIN 2.5 g/dL (3.5-5.0); ALKALINE PHOSPHATASE 139 U/L (38-126); ANION GAP 5 (5-19); ASPARTATE AMINO TRANSFERASE 22 U/L (14-36); BILIRUBIN,DIRECT 0.3 mg/dL (0.0-0.4); BILIRUBIN,TOTAL 0.3 mg/dL (0.2-1.3); BLOOD UREA NITROGEN 30 mg/dL (7-20); CALCIUM 8.3 mg/dL (8.4-10.2); CARBON DIOXIDE 22 mmol/L (22-30); CHLORIDE 108 mmol/L (98-107); GLUCOSE 98 mg/dL (75-110); LIPASE 56.9 U/L (23-300); MAGNESIUM 1.9 mg/dL (1.6-2.3); POTASSIUM 3.6 mmol/L (3.6-5.0); SODIUM 135.4 mmol/L (137-145); TOTAL PROTEIN 4.8 g/dL (6.3-8.2)
[2016-08-23 12:44] VITALS: BP 127/73
== END 2016-08-12 20:30 | disposition home or self-care (01) ==
LOC: ER 16:54
DX: E86.0 Dehydration (principal); R42 Dizziness and giddiness; H53.2 Diplopia; I10 Essential (primary) hypertension; M54.2 Cervicalgia; R53.83 Other fatigue; M79.1 Myalgia; Z88.5 Allergy status to narcotic agent; Z88.1 Allergy status to other antibiotic agents; Z88.8 Allergy status to other drugs, medicaments and biological substances
CPT/HCPCS: 99284; 96360; 36415; 83690; 83735; 80185; 85025; 80053; 81001; 80307; 72050; 70450; J7030

== ENCOUNTER 2019-10-23 12:00 | Outpatient (CLI) | payer MEDICARE, MEDICAID ==
[~2019-10-23 12:00] MED LIST changes: -MAGNESIUM SULFATE 4 GM/D5W 100 ML IV PRN; +NORMAL SALINE 250 ML IV PRN
[2019-10-23] MEDS: MAGNESIUM SULFATE 1 GM/D5W 100 ML IV SCH ×2 (12:12→13:12)
[2019-10-23] MEDS ORDERED: ONDANSETRON HCL INJ/PF 4 MG/2 ML SDV IV PRN (12:30)
[2019-10-23 13:16] VITALS: BP 98/57
== END 2019-10-23 14:15 | disposition home or self-care (01) ==
LOC: II 12:00 → 5TH 12:06 → II 14:15
PROVIDERS: ATTEND Internal Medicine
DX: K90.9 Intestinal malabsorption, unspecified (principal); E83.42 Hypomagnesemia; K50.90 Crohn's disease, unspecified, without complications
CPT/HCPCS: 96365; 96366; J3475; J2405; J1642; 96375

== ENCOUNTER 2019-10-27 08:06 | Outpatient (CLI) | payer MEDICARE, MEDICAID ==
[2019-10-27] MEDS ORDERED: ONDANSETRON HCL INJ/PF 4 MG/2 ML SDV IV PRN (08:27)
[2019-10-27] MEDS: MAGNESIUM SULFATE 1 GM/D5W 100 ML IV SCH ×2 (08:44→09:55)
[2019-10-27 09:08] VITALS: BP 114/59
== END 2019-10-27 11:00 | disposition home or self-care (01) ==
LOC: II 08:06 → 5TH 08:10 → II 11:00
PROVIDERS: ATTEND Internal Medicine
DX: K90.9 Intestinal malabsorption, unspecified (principal); K50.90 Crohn's disease, unspecified, without complications; E83.42 Hypomagnesemia
CPT/HCPCS: 96366; 96375; J3475; J2405; J1642; 96365

== ENCOUNTER 2020-02-18 13:42 | Outpatient (CLI) | payer MEDICARE ==
[2020-02-18] MEDS ORDERED: MAGNESIUM SULFATE/D5W 2 GM/200 ML RTUPB IV PRN (14:02)
[2020-02-18 14:04] VITALS: BP 103/53
== END 2020-02-18 16:40 | disposition home or self-care (01) ==
LOC: II 13:42 → 5TH 13:48 → II 16:40
PROVIDERS: ATTEND Internal Medicine
DX: K90.9 Intestinal malabsorption, unspecified (principal); E83.42 Hypomagnesemia; Z87.19 Personal history of other diseases of the digestive system
CPT/HCPCS: 96365; 96366; J1642; J3475

== ENCOUNTER 2020-02-23 10:47 | Outpatient (CLI) | payer MEDICARE ==
[2020-02-23] MEDS: MAGNESIUM SULFATE 1 GM/D5W 100 ML IV PRN ×2 (11:14→12:42)
[2020-02-23 11:26] VITALS: BP 98/60
== END 2020-02-23 15:00 | disposition home or self-care (01) ==
LOC: II 10:47 → 5TH 10:49 → II 15:00
PROVIDERS: ATTEND Internal Medicine
DX: K90.9 Intestinal malabsorption, unspecified (principal); E83.42 Hypomagnesemia; Z87.19 Personal history of other diseases of the digestive system
CPT/HCPCS: 96365; 96366; J3475; J1642

== ENCOUNTER 2020-02-24 09:06 | Outpatient (CLI) | payer MEDICARE ==
[2020-02-24] MEDS: MAGNESIUM SULFATE 1 GM/D5W 100 ML IV SCH ×2 (09:33→10:36)
[2020-02-24 10:36] VITALS: BP 105/56
== END 2020-02-24 11:52 | disposition home or self-care (01) ==
LOC: II 09:06 → 5TH 09:47 → II 11:52
PROVIDERS: ATTEND Internal Medicine
DX: C34.11 Malignant neoplasm of upper lobe, right bronchus or lung (principal)
CPT/HCPCS: 96365; 96366; J3475; J1642

== ENCOUNTER 2020-02-26 10:56 | Outpatient (CLI) | payer MEDICARE ==
[2020-02-26 11:20] VITALS: BP 86/62
[2020-02-26] MEDS: MAGNESIUM SULFATE 1 GM/D5W 100 ML IV SCH ×2 (11:24→12:24)
== END 2020-02-26 13:59 | disposition home or self-care (01) ==
LOC: II 10:56 → 5TH 11:02 → II 13:59
PROVIDERS: ATTEND Internal Medicine
DX: K90.9 Intestinal malabsorption, unspecified (principal); E83.42 Hypomagnesemia; Z87.19 Personal history of other diseases of the digestive system
CPT/HCPCS: 96365; 96366; J3475; J1642

== ENCOUNTER 2020-03-01 09:47 | Outpatient (CLI) | payer MEDICARE ==
[2020-03-01 10:04] VITALS: BP 84/51
[2020-03-01] MEDS: MAGNESIUM SULFATE 1 GM/D5W 100 ML IV PRN ×2 (10:09→11:10)
== END 2020-03-01 13:12 | disposition home or self-care (01) ==
LOC: II 09:47 → 5TH 10:07 → II 13:12
PROVIDERS: ATTEND Internal Medicine
DX: K90.9 Intestinal malabsorption, unspecified (principal); E83.42 Hypomagnesemia; Z87.19 Personal history of other diseases of the digestive system
CPT/HCPCS: 96365; 96366; J3475; J1642

== ENCOUNTER 2020-03-02 10:35 | Outpatient (CLI) | payer MEDICARE ==
[2020-03-02] MEDS: MAGNESIUM SULFATE 1 GM/D5W 100 ML IV PRN ×2 (10:56→12:00)
[2020-03-02] MEDS ORDERED: ONDANSETRON HCL INJ/PF 4 MG/2 ML SDV IV ONE (11:30)
[2020-03-02 12:46] VITALS: BP 108/76
== END 2020-03-02 13:15 | disposition home or self-care (01) ==
LOC: II 10:35 → 5TH 10:37 → II 13:15
PROVIDERS: ATTEND Internal Medicine
DX: K90.9 Intestinal malabsorption, unspecified (principal); E83.42 Hypomagnesemia; Z87.19 Personal history of other diseases of the digestive system
CPT/HCPCS: 96365; 96366; J3475; J2405; J1642

== ENCOUNTER 2020-03-04 08:53 | Outpatient (CLI) | payer MEDICARE ==
[2020-03-04] MEDS: MAGNESIUM SULFATE 1 GM/D5W 100 ML IV PRN ×2 (09:04→10:06)
[2020-03-04 09:46] VITALS: BP 84/48
[2020-03-04] MEDS ORDERED: ONDANSETRON HCL INJ/PF 4 MG/2 ML SDV IV ONE (11:00)
== END 2020-03-04 11:30 | disposition home or self-care (01) ==
LOC: II 08:53 → 5TH 09:00 → II 11:30
PROVIDERS: ATTEND Internal Medicine
DX: K90.9 Intestinal malabsorption, unspecified (principal); E83.42 Hypomagnesemia
CPT/HCPCS: 96365; 96366; 96375; J3475; J2405; J1642

== ENCOUNTER 2020-03-08 07:55 | Outpatient (CLI) | payer MEDICARE ==
[~2020-03-08 07:55] MED LIST changes: -NORMAL SALINE 250 ML IV PRN; +ONDANSETRON HCL INJ/PF 4 MG/2 ML SDV IV PRN
[2020-03-08] MEDS: MAGNESIUM SULFATE 1 GM/D5W 100 ML IV PRN ×2 (08:25→09:28)
[2020-03-08 09:02] VITALS: BP 92/56
== END 2020-03-08 10:45 | disposition home or self-care (01) ==
LOC: II 07:55 → 5TH 08:34 → II 10:45
PROVIDERS: ATTEND Internal Medicine
DX: K90.9 Intestinal malabsorption, unspecified (principal); E83.42 Hypomagnesemia; Z87.19 Personal history of other diseases of the digestive system
CPT/HCPCS: 96365; 96366; 96375; J3475; J2405; J1642

== ENCOUNTER 2020-03-09 09:52 | Outpatient (CLI) | payer MEDICARE ==
[2020-03-09] MEDS: MAGNESIUM SULFATE 1 GM/D5W 100 ML IV PRN ×2 (10:10→11:15)
[2020-03-09 10:19] VITALS: BP 99/59
== END 2020-03-09 13:14 | disposition home or self-care (01) ==
LOC: II 09:52 → 5TH 10:20 → II 13:14
PROVIDERS: ATTEND Internal Medicine
DX: K90.9 Intestinal malabsorption, unspecified (principal); E83.42 Hypomagnesemia; Z87.19 Personal history of other diseases of the digestive system
CPT/HCPCS: 96365; 96366; 96375; J3475; J2405; J1642

== ENCOUNTER 2020-03-15 08:04 | Outpatient (CLI) | payer MEDICARE ==
[2020-03-15 08:45] VITALS: BP 101/66
[2020-03-15] MEDS: MAGNESIUM SULFATE 1 GM/D5W 100 ML IV PRN ×2 (08:46→09:50)
== END 2020-03-15 11:02 | disposition home or self-care (01) ==
LOC: II 08:04 → 5TH 08:07 → II 11:02
PROVIDERS: ATTEND Internal Medicine
DX: K90.9 Intestinal malabsorption, unspecified (principal); E83.42 Hypomagnesemia; Z87.19 Personal history of other diseases of the digestive system
CPT/HCPCS: 96365; 96366; 96375; J3475; J2405; J1642

== ENCOUNTER 2020-03-16 08:09 | Outpatient (CLI) | payer MEDICARE ==
[~2020-03-16 08:09] MED LIST changes: +MAGNESIUM SULFATE 1 GM/D5W 100 ML IV PRN
[2020-03-16] MEDS: MAGNESIUM SULFATE 1 GM/D5W 100 ML IV PRN ×2 (08:48→09:50)
[2020-03-16 11:22] VITALS: BP 115/60
== END 2020-03-16 11:24 | disposition home or self-care (01) ==
LOC: II 08:09 → 5TH 08:12 → II 11:24
PROVIDERS: ATTEND Internal Medicine
DX: K90.9 Intestinal malabsorption, unspecified (principal); E83.42 Hypomagnesemia; Z87.19 Personal history of other diseases of the digestive system
CPT/HCPCS: 96365; 96366; J3475; J2405; J1642

== ENCOUNTER 2020-03-18 08:11 | Outpatient (CLI) | payer MEDICARE ==
[~2020-03-18 08:11] MED LIST changes: -MAGNESIUM SULFATE 1 GM/D5W 100 ML IV PRN
[2020-03-18] MEDS: MAGNESIUM SULFATE 1 GM/D5W 100 ML IV PRN ×2 (08:24→09:29)
[2020-03-18] MEDS ORDERED: ONDANSETRON HCL INJ/PF 4 MG/2 ML SDV IV PRN (08:24)
[2020-03-18] MEDS ORDERED: MAGNESIUM SULFATE 1 GM/D5W 100 ML IV PRN (08:25)
[2020-03-18 08:30] VITALS: BP 108/57
== END 2020-03-18 11:00 | disposition home or self-care (01) ==
LOC: II 08:11 → 5TH 08:15 → II 11:00
PROVIDERS: ATTEND Internal Medicine
DX: K90.9 Intestinal malabsorption, unspecified (principal); E83.42 Hypomagnesemia; Z87.19 Personal history of other diseases of the digestive system
CPT/HCPCS: 96365; 96366; J3475; J2405; J1642

== ENCOUNTER 2020-03-22 08:07 | Outpatient (CLI) | payer MEDICARE ==
[2020-03-22] MEDS: MAGNESIUM SULFATE 1 GM/D5W 100 ML IV PRN ×2 (08:37→09:39)
[2020-03-22 11:12] VITALS: BP 108/61
== END 2020-03-22 11:00 | disposition home or self-care (01) ==
LOC: II 08:07 → 5TH 08:17 → II 11:00
PROVIDERS: ATTEND Internal Medicine
DX: K90.9 Intestinal malabsorption, unspecified (principal); E83.42 Hypomagnesemia; Z87.19 Personal history of other diseases of the digestive system
CPT/HCPCS: 96365; 96366; 96375; J3475; J2405; J1642

== ENCOUNTER 2020-03-24 07:31 | Outpatient (CLI) | payer MEDICARE ==
[2020-03-24] MEDS: MAGNESIUM SULFATE 1 GM/D5W 100 ML IV PRN ×2 (08:00→09:05)
[2020-03-24 09:44] VITALS: BP 106/68
== END 2020-03-24 10:15 | disposition home or self-care (01) ==
LOC: II 07:31 → 5TH 07:32 → II 10:15
PROVIDERS: ATTEND Internal Medicine
DX: K90.9 Intestinal malabsorption, unspecified (principal); E83.42 Hypomagnesemia; Z87.19 Personal history of other diseases of the digestive system
CPT/HCPCS: 96365; 96366; 96375; J3475; J2405; J1642

== ENCOUNTER → 2020-03-28 | Outpatient (CLI) | payer MEDICARE ==
[~2020-03-28] MED LIST changes: +MAGNESIUM SULFATE/D5W 2 GM/200 ML RTUPB IV ONE; +ONDANSETRON HCL INJ/PF 4 MG/2 ML SDV ONE
[2020-03-28] MEDS: MAGNESIUM SULFATE 1 GM/D5W 100 ML IV PRN ×2 (09:30→10:40)
[2020-03-28 17:30] VITALS: BP 112/69
== END ==
LOC: ASU 07:55
PROVIDERS: ATTEND Internal Medicine
DX: K90.9 Intestinal malabsorption, unspecified (principal); E83.42 Hypomagnesemia; Z87.19 Personal history of other diseases of the digestive system
CPT/HCPCS: 96365; 96366; 96375; J3475; J2405; J1642; 96374

== ENCOUNTER 2020-03-30 07:57 | Outpatient (CLI) | payer MEDICARE ==
[~2020-03-30 07:57] MED LIST changes: -MAGNESIUM SULFATE/D5W 2 GM/200 ML RTUPB IV ONE; -ONDANSETRON HCL INJ/PF 4 MG/2 ML SDV ONE
[2020-03-30] MEDS: MAGNESIUM SULFATE 1 GM/D5W 100 ML IV PRN ×2 (08:11→09:13)
[2020-03-30 08:24] VITALS: BP 106/61
== END 2020-03-30 10:30 | disposition home or self-care (01) ==
LOC: II 07:57 → 5TH 08:00 → II 10:30
PROVIDERS: ATTEND Internal Medicine
DX: K90.9 Intestinal malabsorption, unspecified (principal); K50.90 Crohn's disease, unspecified, without complications; E83.42 Hypomagnesemia
CPT/HCPCS: 96365; 96366; 96375; J3475; J2405; J1642

== ENCOUNTER 2020-03-31 08:01 | Outpatient (CLI) | payer MEDICARE ==
[2020-03-31] MEDS: MAGNESIUM SULFATE 1 GM/D5W 100 ML IV PRN ×2 (08:23→09:25)
[2020-03-31 08:35] VITALS: BP 95/58
== END 2020-03-31 10:41 | disposition home or self-care (01) ==
LOC: II 08:01 → 5TH 08:03 → II 10:41
PROVIDERS: ATTEND Internal Medicine
DX: K90.9 Intestinal malabsorption, unspecified (principal); E83.42 Hypomagnesemia; K50.90 Crohn's disease, unspecified, without complications
CPT/HCPCS: 96365; 96366; 96375; J3475; J2405; J1642

== ENCOUNTER → 2020-04-04 | Outpatient (CLI) | payer MEDICARE ==
[~2020-04-04] MED LIST changes: +MAGNESIUM SULFATE/D5W 2 GM/200 ML RTUPB IV ONE; +ONDANSETRON HCL INJ/PF 4 MG/2 ML SDV ONE
[2020-04-04] MEDS: MAGNESIUM SULFATE 1 GM/D5W 100 ML IV PRN ×2 (11:38→14:04)
[2020-04-04 14:08] VITALS: BP 119/71
== END ==
LOC: ASU 11:03
PROVIDERS: ATTEND Internal Medicine
DX: K90.9 Intestinal malabsorption, unspecified (principal); E83.42 Hypomagnesemia; Z87.19 Personal history of other diseases of the digestive system
CPT/HCPCS: 96365; 96366; 96375; J3475; J2405; J1642